=== PATIENT | female | born 1970 | race Caucasian/White ===

== ENCOUNTER 2018-11-11 11:13 | Emergency (ER) | payer SELFPAY ==
[~2018-11-11 11:13] MED LIST: Iopamidol 370 76% 100 ML VIAL ONE
[2018-11-11] MEDS ORDERED: Morphine 4 MG/ML VIAL ONE (11:43)
[2018-11-11 11:48] LABS: #Basophils 0.1 thou/uL (0.0-0.2); #Monocytes 0.4 thou/uL (0.11-0.59); #Neutrophils 1.8 thou/uL (1.40-6.50); %Basophils 2.7 % (0.0-1.0); %Eosinophils 0.3 % (0.0-10.0); %Lymphocytes 29.8 % (21.0-51.0); %Monocytes 13.2 % (0.0-10.0); Hemoglobin 14.6 g/dL (12.0-16.0); Mean Corpuscular HGB CONC 33.2 g/dL (32.0-36.0); Mean Corpuscular Hemoglobin 27.9 pg (27.0-31.0); Mean Platelet Volume 7.3 fL (7.4-10.4); Platelet Count 200 thou/uL (130-400); RBC Distribution Width 12.5 % (11.5-14.5); Red Blood Cell (RBC) Count 5.22 mill/uL (4.20-5.40); White Blood Cell (WBC) Count 3.4 thou/uL (4.8-10.8)
[2018-11-11] MEDS ORDERED: Promethazine HCl 25 MG/ML VIAL ONE (11:57)
[2018-11-11 11:58] LABS: Bilirubin Small (Negative); Blood, Urine Negative (Negative); Clarity Cloudy (Clear); Glucose, Urine (Dipstick) 100 mg/dL (Negative); Leukocyte Negative (Negative); Nitrite Negative (Negative); Protein, Urine (Dipstick) 100 mg/dL (Neg-Trace); Specific Gravity, Urine 1.027 (1.005-1.030); Urobilinogen 0.2 mg/dL (0.2-1.0); pH, Urine 5.5 (5.0-9.0)
[2018-11-11 11:59] LABS: ALT (SGPT) 75 U/L (8-55); AST (SGOT) 72 U/L (5-34); Alkaline Phosphatase 118 U/L (40-150); Anion Gap 17 mmol/L (10-20); BHCG - Serum Negative (NEGATIVE); BUN (Urea Nitrogen) 11 mg/dL (7.0-18.7); Bilirubin, Total 0.3 mg/dL (0.2-1.2); Calc. Creatinine Clearance 0 mL/min (70-130); Calcium 8.8 mg/dL (7.8-10.44); Carbon Dioxide 23 mmol/L (22-29); Chloride 100 mmol/L (98-107); Estimated GFR-MDRD 69; Globulin 3.2 g/dL (2.4-3.5); Glucose 240 mg/dL (70-105); Lipase 18 U/L (8-78); Potassium 3.7 mmol/L (3.5-5.1); Pregs Control Background? CLEAR/WHITE (CLR/WHITE); Pregs Control Bar Appear? YES (CONTROL BAR); Protein, Total 7.2 g/dL (6.0-8.3); Sodium 136 mmol/L (136-145)
[2018-11-11 12:02] LABS: Bacteria/HPF 4+ HPF (None Seen); RBC/HPF 0-3 HPF (0-3); WBC/HPF 0-3 HPF (0-3)
[2018-11-11 12:03] LABS: Other Microscopic Description MOCOUS THREADS
[2018-11-11 12:07] LABS: Base Excess-Venous -0.6 mmol/L (-2.0 to 3.0); Bicarbonate (HCO3v) 24.5 mmol/L (22.0-28.0); CO2 Tension (PvCO2) 40.8 mmHg (40.0-50.0); O2 Tension (PvO2) 27.6 mmHg (35.0-45.0); vO2 Saturation-calc 50.9 % (60.0-85.0)
[2018-11-11 12:08] LABS: Calcium, Ionized 1.05 mmol/L (See Comments:); Chloride 100 mmol/L (98-107); Hemoglobin - Calc 14.9 g/dL (12.0-16.0); Potassium 3.5 mmol/L (3.5-5.1); Sodium 134 mmol/L (138-145); T. Carbon Dioxide 25.7 mmol/L (22.0-28.0); pH (Venous) 7.386 (7.320-7.430)
[2018-11-11 12:16] LABS: CKMB 1.1 ng/mL (0-6.6)
--- NOTE | 2018-11-11 13:03 | CT ---
FCT Abdomen Pelvis W Con: 11/11/2018 12:34 PM CLINICAL INFORMATION: Right upper quadrant abdominal pain COMPARISON: None. Procedure: Multiple contiguous axial images were obtained and a CT of the abdomen and pelvis with IV contrast. C oronal reformats were performed. FINDINGS: Lower Chest: within normal limits. Abdomen: Liver: Diffuse fatty infiltration Bile Ducts: Normal caliber. Gallbladder: Surgically absent Pancreas: within normal limits. Spleen: within normal limits. Adrenals: within normal limits. Kidneys: within normal limits. Pelvis: Reproductive Organs: Surgically absent Ureters: within normal limits. Bladder: within normal limits. Peritoneum: No ascites or free air, no fluid collection. Bowel: Normal caliber. Mesentery and Retroperitoneum: No enlarged mesenteric or retroperitoneal lymph nodes. Vessels: There are mild vascular calcifications involving the abdominal pelvic vasculature. Abdominal Wall: within normal limits. Bones: within normal limits. IMPRESSION: No evidence of acute intraabdominal\pelvic abnormality. Fatty liver
[2018-11-11 13:57] LABS: Troponin I 0.019 ng/mL (< 0.028)
== END 2018-11-11 14:02 | disposition home or self-care (01) ==
LOC: BURERS 11:13
DX: R10.11 Right upper quadrant pain (principal); E10.9 Type 1 diabetes mellitus without complications; I10 Essential (primary) hypertension
CPT/HCPCS: 74177; 80053; 81003; 81015; 82330; 82435; 82553; 82803; 83605; 83690; 84132; 84295; 84484; 84703; 85014; 85025; 85379; 93005; 96361; 96365; 96375; J2270; J2550; Q9967